=== PATIENT | female | born 1945 | race Caucasian/White ===

== ENCOUNTER 2024-01-16 09:27 | Outpatient (REF) | payer MEDICARE, OTHER, SELFPAY ==
--- NOTE | ~2024-01-16 | XR_ITS ---
EXAMINATION: XR KNEE, LEFT CLINICAL INFORMATION: Pain in left knee. COMPARISON: None available. TECHNIQUE: Three views of the left knee. FINDINGS: Moderate joint effusion. Status post total knee arthroplasty. Hardware appears intact. Alignment preserved. XR/XR knee LT 3V IMPRESSION: Moderate joint effusion. Status post total knee arthroplasty. Hardware appears intact. Alignment preserved.
== END 2024-01-16 09:28 | disposition home or self-care (01) ==
LOC: HO.HOSX 09:27
PROVIDERS: Visit Provider Orthopaedic Surgery
DX: M25.562 Pain in left knee (principal)
CPT/HCPCS: 73562

== ENCOUNTER 2024-01-16 10:34 | Outpatient (AMB) | payer MEDICARE, OTHER, SELFPAY ==
--- NOTE | 2024-01-16 10:43 | A.OFFVIS_ITS ---
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 Barnes for her Left TKA done in October of 2019. She reports minimal discomfort in her left knee. The patient states that over the last year she has fallen on several occasions. She has suffered a compression fracture of her low back as well as a pelvis fracture. She has done formal physical therapy. She is trying to get back into shape so she can perform ballet again. Allergies tetracycline Allergy (Intermediate, Verified 01/16/24 10:50) Rash keflex Allergy (Intermediate, Uncoded 01/16/24 10:50) Hives Medication List - Last Reconciled 01/16/24 by Dave Barnes MD atorvastatin 20 mg PO DAILY lorazepam 0.5 mg PO DAILY sertraline 50 mg PO DAILY trazodone 50 mg PO BEDTIME [facility] Surgical History (Updated 01/16/24 @ 10:53 by Karin Boykin CMA) History of foot surgery History of foot surgery History of surgery on right wrist Hx of left knee surgery (~10/2019) Social History (Updated 01/16/24 @ 10:53 by Karin Boykin CMA) Patient Tobacco Use Status: Never used Tobacco 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al status: retired 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: 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 Physical Exam Vital Signs: BMI result Body Mass Index 22.5 Const Other: Well-nourished well-developed very friendly female awake alert and oriented x3 in no acute distress Extrem Other: Bilateral lower extremity examination shows good capillary refill, no skin lesions noted, normal sensation light touch Left knee examination shows that the surgical incision is well healed, no erythema, full active extension and flexion to 120 degrees, her patella tracks well Results Reviewed Results Reviewed: X-rays of the patient's left knee taken today show a total knee arthroplasty in good position with no signs of loosening, no acute bony abnormalities Assessment & Plan Assessment & Plan (1) Left knee pain: Code(s): M25.562 - Pain in left knee Plan Ms. Carrington continues to do well after undergoing left total knee replacement surgery in October of 2019. She will continue with her physical therapy exercises. Activity modifications were discussed at length with the patient. She will contact me prior to her follow-up appointment in 3 months should any questions or concerns arise. Feel free to call me at any time should questions regarding her orthopedic management arise. I spent 22 minutes in reviewing the patient's records and imaging studies, seeing the patient and documenting in the medical record. Orders: Orders XR knee LT 3V Today M25.562 - Pain in left knee Coding Level of Care Code Est Pt Level 2 (10764) Diagnoses Left knee pain M25.562
[2024-01-16 10:48] VITALS: BMI 22.5
== END 2024-01-16 11:13 | disposition home or self-care (01) ==
PROVIDERS: PCP Internal Medicine; Visit Provider Orthopaedic Surgery
DX: M25.562 Pain in left knee (principal)
CPT/HCPCS: 99213

== ENCOUNTER 2024-04-22 10:58 | Outpatient (AMB) | payer MEDICARE, OTHER, SELFPAY ==
--- NOTE | 2024-04-22 11:01 | MHC.OFFVIS ---
Intake Visit Reasons: ov-LT TKA follow up-DOS 2019 Intake Note: Freda is a 79 year old female who presents to the office today for a LT TKA 2019 follow up. Pt states she is feeling well. She states her ROM is great. Pt denies any concerns at this time. She has returned to dancing for exercise. She does not take any medicine for discomfort. Allergies tetracycline Allergy (Intermediate, Verified 04/22/24 11:01) Rash keflex Allergy (Intermediate, Uncoded 04/22/24 11:01) Hives Medication List - Last Reconciled 04/22/24 by Dave Barnes MD atorvastatin 20 mg PO DAILY lorazepam 0.5 mg PO DAILY sertraline 50 mg PO DAILY trazodone 50 mg PO BEDTIME [facility] Surgical History (Updated 01/16/24 @ 10:53 by Karin Boykin CMA) History of foot surgery History of foot surgery History of surgery on right wrist Hx of left knee surgery (~10/2019) Social History (Updated 01/16/24 @ 10:53 by Karin Boykin CMA) Patient Tobacco Use Status: Never used Tobacco 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al status: retired 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 Carrington continues to do very well after undergoing left total knee replacement surgery. She will continue with her dance exercise program. She does know to take antibiotics before any dental work. She will contact me prior to her annual follow-up appointment should any questions or concerns arise. Feel free to call me at any time should questions regarding her orthopedic management arise. I spent 21 minutes in reviewing the patient's records and imaging studies, seeing the patient and documenting in the medical record. Coding Level of Care Code Est Pt Level 3 (27643) Diagnoses Left knee pain M25.562
== END 2024-04-22 11:22 | disposition home or self-care (01) ==
PROVIDERS: PCP Internal Medicine; Visit Provider Orthopaedic Surgery
DX: M25.562 Pain in left knee (principal); Z96.652 Presence of left artificial knee joint
CPT/HCPCS: 99212

== ENCOUNTER → 2024-04-22 10:58 | Outpatient (BNVA) | payer OTHER, MEDICARE, SELFPAY | PROVIDERS: PCP Internal Medicine; Visit Provider Orthopaedic Surgery ==

== ENCOUNTER 2025-04-22 07:53 | Outpatient (REF) | payer MEDICARE, OTHER, SELFPAY ==
--- NOTE | ~2025-04-22 | XR_ITS ---
EXAMINATION: XR KNEE 3 VIEWS LEFT HISTORY: M25.562 - Pain in left knee COMPARISON: There are no prior studies for comparison. FINDINGS: AP, lateral, and sunrise patellar views of the left knee are submitted. The patient is again noted to be status post left total knee arthroplasty. The orthopedic elements are in anatomic alignment. There is no radiographic evidence of loosening. There is no fracture or dislocation. There is no joint effusion. The soft tissues are unremarkable. XR/XR knee LT 3V IMPRESSION: Status post left total knee arthroplasty. Electronically signed by: Didier Craig MD 04/22/2025 11:28 AM EDT
--- OUTSIDE RECORDS SUMMARY | 2025-04-23 07:57 | XMS_ITS | Patient Health Record ---
[facility] Address [address] [place] [address] Care Team Providers Care Progressive Die Maker Name Role Phone Dick CONNOLLY, Gibson Primary Care Provider Yesica Brennen Oakes Unavailable [phone] Allergies Allergen (clinical drug ingredient) Drug/Non Drug [...] primary osteoarthritis of the ankle and/or foot ([id number]) Primary osteoarthrit is, left ankle and foot (M19.072) Active confirmed Plan Of Treatment Pending Test Test Name Order Date X ray : Foot, left 2V 06/12/2011 X ray : Foot, left 3V 06/30/2013 X ray : Foot, left 3V 07/30/2017 X ray : Foot, left 3V 11/19/2018 [id number] TENDON SHEATH/LIGAMENT 0 06/12/2011 11447, J0702- Neuroma/Injection 06/30/20 13 Insurance Providers Payer Name Payer Address Payer Phone Subscriber Number Group Number Insured Name Patient Relationship to Insured Coverage Start Date Coverage End Date Medicare National [employer] [address] [facility] [address] [id number] Freda Garcia Self - patient is the insured [facility] ([facility]) [address] [place] [address] [id number] Fabian Garcia Spouse - patient is the spouse of the insured Medical (General) History Medical History History ICD Code Arthritis rheumatic fever reflux osteoporosis mumps measles chicken pox broken bones Anxiety disorder Cholesterol Stomach ulcer Joint implants/screws Surgical History Surgery Date(Month/Year) bunionectomy 04/18/2010 hammer toe 04/18/2010 tonsillectomy age 6 tubal ligation 1984
--- OUTSIDE RECORDS SUMMARY | 2025-04-23 07:57 | XMS_ITS | Clinical Summary ---
Author Organization [facility] Address [address] [place] [address] Care Team Providers Care Livestock Farm Manager Name Role Phone Gibson Jennings MD Primary Care Provider +1- [phone] Allergies Active Allergy Reactions Criticality Noted Date [...] this topic Medical Devices Implanted Type Area Oil Spraying Machine Operator Device Identifier Shelf Expiration Date Model / Serial / Lot Cement Simplex P Radiopaque Full Dose Bone 10 Pack - [id number] - [id number] Implanted:Qty: 1 on 11/12/2019 by Dave Barnes MD at [facility] Left: Knee [facility] 09/12/2021 6191-1-010 / / [id number] Cement Simplex P Radiopaque Full Dose Bone 10 Pack - [id number] - [id number] Implanted:Qty: 1 on 11/12/2019 by Dave Barnes MD at [facility] Left: Knee [employer] 09/12/2021 6191-1-010 / / [id number] Baseplate Triathlon 4 Primary Cemented Tibial Knee - [id number] - [id number] Implanted:Qty: 1 on 11/12/2019 by Dave Barnes MD at [facility] Left: Knee [employer] 02/17/2024 5520-B-400 / / [id number] Component Triathlon 3 Posterior Stabilized Cemented Femoral - 259330 - [id number] Implanted:Qty: 1 on 11/12/2019 by Dave Barnes MD at [facility] Left: Knee [facility] 11/05/2023 5515-F-301 / / [id number] Insert Triathlon 4 9mm Posterior Stabilized X3 Tibial Knee - [id number] - [id number] Implanted:Qty: 1 on 11/12/2019 by Dave Barnes MD at [facility] Left: Knee [facility] 01/26/2023 5532-G-409 / / [id number] Component Triathlon 9mm 29mm Asymmetric X3 Ptlar Knee - [id number] - [id number] Implanted:Qty: 1 on 11/12/2019 by Dave Barnes MD at [facility] Left: Knee [facility] 03/28/2024 5551-G-299 / / [id number] Peg Triathlon Modular Fix Distal Femur Knee - 039013 - [id number] Implanted:Qty: 1 on 11/12/2019 by Dave Barnes MD at [facility] Left: Knee [employer] 12/30/2023 5575-X-000 / / [id number] Advance Directives For more information, please contact: [phone] Latest Code Status on File Code Status [...] way: discussion with patient . Care Teams Livestock Farm Manager Relationship Specialty Start Date End Date Gibson Jennings MD [address] [address] PCP - General Internal Medicine 02/06/18
--- OUTSIDE RECORDS SUMMARY | 2025-04-23 07:57 | XMS_ITS | Clinical Summary ---
Author Organization [facility] Address [address] [place] [address] Care Team Providers Care Data Warehousing Engineer Name Role Phone Gibson Jennings MD Primary Care Provider +1- [phone] Surgical History Surgery Date Site/Laterality Comments OTHER SURGICAL HISTORY PROCEDURE:ID PELVIC EXAMINATION W/ANESTHESIA OTHER THAN LOCAL;COMMENT:TUBAL LIGATION TONSILLECTOMY PROCEDURE:TONSILLECTOMY BUNIONECTOMY Bilateral PROCEDURE:BUNIONECTOMY OTHER SURGICAL HISTORY Bilateral PROCEDURE:HAMMERTOE KNEE SURGERY Left PROCEDURE:KNEE SURGERY;COMMENT:SCOPE COLONOSCOPY PROCEDURE:COLONOSCOPY TOTAL KNEE ARTHROPLASTY 11/12/2019 Left PROCEDURE:TOTAL KNEE ARTHROPLASTY;COMMENT:Procedure: REPLACEMENT TOTAL KNEE; Surgeon: Dave Barnes MD; Location: [facility] Service: Orthopedics; [...] this topic Medical Devices Implanted Type Area Service Technician Device Identifier Shelf Expiration Date Model / Serial / Lot Cement Simplex P Radiopaque Full Dose Bone 10 Pack - [id number] Implanted:Qty: 1 on 11/12/2019 by Dave Barnes MD Left: Knee [facility] [employer] 09/12/2021 6191-1-010 / / [id number] Cement Simplex P Radiopaque Full Dose Bone 10 Flzg - [id number] Implanted:Qty: 1 on 11/12/2019 by Dave Barnes MD Left: Knee [employer] [employer] 09/12/2021 6191-1-010 / / [id number] Baseplate Triathlon 4 Primary Cemented Tibial Knee - [id number] Implanted:Qty: 1 on 11/12/2019 by Dave Barnes MD Left: Knee [employer] [facility] 02/17/2024 5520-B-400 / / [id number] Component Triathlon 3 Posterior Stabilized Cemented Femoral - [id number] Implanted:Qty: 1 on 11/12/2019 by Dave Barnes MD Left: Knee [employer] [facility] 11/05/2023 5515-F-301 / / [id number] Insert Triathlon 4 9mm Posterior Stabilized X3 Tibial Knee - [id number] Implanted:Qty: 1 on 11/12/2019 by Dave Barnes MD Left: Knee [facility] 01/26/2023 5532-G-409 / / [id number] Component Triathlon 9mm 29mm Asymmetric X3 Ptlar Knee - [id number] Implanted:Qty: 1 on 11/12/2019 by Dave Barnes MD Left: Knee [facility] [facility] 03/28/2024 5551-G-299 / / [id number] Peg Triathlon Modular Fix Distal Femur Knee - [id number] Implanted:Qty: 1 on 11/12/2019 by Dave Barnes MD Left: Knee [employer] 12/30/2023 5575-X-000 / / [id number] Procedures Procedure Name Priority Date/Time Associated Diagnosis Comments [facility] DEXA AXIAL SKELETON Routine 05/18/2024 3:15 PM EDT Other specified disorders of bone density and structure, other site from Last 3 Months or Most Recently Relevant to Health Maintenance Results * [facility] DEXA AXIAL SKELETON (05/18/2024 3:15 PM EDT) Anatomical Region Laterality Modality Mammography 05/18/2024 2:27 PM EDT Narrative 05/18/2024 3:15 PM EDT [facility] Diagnostic Imaging Department [address] [place] [id number] Patient: FREDA STEPHENS Eddie Torres./Age/Sex: 1945 - 79 - F Unit#: [id number] Location/Status: SPDIMAM/REG CLI Mnemonic[facility] Ordering Physician: MAX WELCH MD Deep Dexa Axial Skeleton - 05/18/24 - 1499 Report Status:Signed History: Low estrogen state due to menopause. Personal history of fracture. Patient receives Prolia injection twice year. Comparison: No comparison imaging at this institution. Findings: Bone densitometry is performed utilizing dual energy x-ray absorptiometry (DXA) in the [employer] unit. The lumbar spine and proximal femora [...] 18.6 percent Hip 4.2 percent. IMPRESSION: Osteopenia. [id number] Dictating Physician: MARIANA SORTO MD Electronically Signed by: MARIANA SORTO MD Dic Date/Time: 05/18/241512 Sign date/Time: 05/18/241514 Procedure Note Mariana Sorto MD - 07/29/2024 [facility] Diagnostic Imaging Department [address] [place] [id number] Patient: FREDA STEPHENS Eddie Torres./Age/Sex: 1945 - 79 - F Unit#: [id number] Location/Status: [facility] CLI Mnemonic[facility] Ordering Physician: MAX WELCH MD Deep Dexa Axial Skeleton - 05/18/241499 Report Status:Signed History: Low estrogen state due to menopause. Personal history offracture. Patient receives Prolia injection twice year. Comparison: No comparison imaging at this institution. Findings: Bone densitometry is performed utilizing dual energy x-ray absorptiometry(DXA) in the [employer] unit. The lumbar spine and proximal femora [...] 18.6 percent Hip 4.2 percent. IMPRESSION: Osteopenia. [id number] Dictating Physician: MARIANA SORTO MD Electronically Signed by: MARIANA SORTO MD Dic Date/Time: 05/18/24 1513 Sign date/Time: 05/18/24 1515 us Max Welch MD IMG BI PROCEDURES Ruchi l Result from Last 3 Months or Most Recently Relevant to Health Maintenance Care Teams Data Warehousing Engineer Relationship Specialty Start Date End Date Gibson Jennings MD [address] [address] PCP - General Internal Medicine 02/06/18
== END 2025-04-22 07:54 | disposition home or self-care (01) ==
LOC: HO.HOSX 07:53
PROVIDERS: Visit Provider Orthopaedic Surgery
DX: M25.562 Pain in left knee (principal); Z96.652 Presence of left artificial knee joint
CPT/HCPCS: 73562

== ENCOUNTER 2025-04-22 11:13 | Outpatient (AMB) | payer OTHER, MEDICARE, SELFPAY ==
[2025-04-22 11:24] VITALS: BMI 22.5
--- NOTE | 2025-04-22 11:24 | MHC.OFFVIS ---
Vital Signs 04/22/25 11:24 Height 5 ft 5 in Weight 135 lb BMI 22.5 Intake Visit Reasons: OV-LT TKA follow up-DOS Oct, 2019 Intake Note: Freda is a 80 year old female who presents to the office today after undergoing a left total knee arthroplasty October,. The patient reports mild intermittent discomfort in her left knee. She continues with her ballet dancing 2 times per week for exercise. She does not take any medicines for discomfort. She denies any fevers or chills. Allergies tetracycline Allergy (Intermediate, Verified 04/22/25 11:24) Rash keflex Allergy (Intermediate, Uncoded 04/22/25 11:24) Hives Medication List - Last Reconciled 04/22/25 by Dave Barnes MD atorvastatin 20 mg PO DAILY lorazepam 0.5 mg PO DAILY sertraline 50 mg PO DAILY trazodone 50 mg PO BEDTIME [facility] Surgical History (Updated 01/16/24 @ 10:53 by Karin Boykin CMA) History of foot surgery History of foot surgery History of surgery on right wrist Hx of left knee surgery (~10/2019) Social History (Updated 01/16/24 @ 10:53 by Karin Boykin CMA) Patient Tobacco Use Status: Never used Tobacco 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al status: retired 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: 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 Physical Exam Vital Signs: BMI result Body Mass Index 22.5 Const Other: Well-nourished well-developed very friendly female awake alert and oriented x3 in no acute distress Extrem Other: Left knee examination shows surgical incision is well healed, no erythema, full active extension and flexion to 125 degrees, her patella tracks well Results Reviewed Results Reviewed: X-rays of the patient's left knee taken today show a total knee arthroplasty in good position with no signs of loosening, no acute bony abnormalities Assessment & Plan Assessment & Plan (1) Left knee pain: Code(s): M25.562 - Pain in left knee Category: Medical Plan Ms. Carrington continues to do well after undergoing left total knee replacement surgery. She will continue with her exercise program. She does know to take antibiotics before any dental work. She will contact me prior to her annual follow-up appointment should any questions or concerns arise. I spent 21 minutes in reviewing the patient's records and imaging studies, seeing the patient and documenting in the medical record. Orders: Orders XR knee LT 3V Today M25.562 - Pain in left knee Coding Level of Care Code Est Pt Level 3 (50730) Complex EM visit Add On G2211 Diagnoses Left knee pain M25.562
--- OUTSIDE RECORDS SUMMARY | 2025-04-22 11:58 | XMS_ITS | Patient Health Record ---
[facility] Address [address] [place] [address] Care Team Providers Care Academic Interventionist Name Role Phone Dick CONNOLLY, Gibson Primary Care Provider Yesica Brennen Oakes Unavailable [phone] Allergies Allergen (clinical drug ingredient) Drug/Non Drug Allergy documented on EMR Reaction Allergy Type Onset Date Status Information temporarily unavailable Cat (uncoded) Unknown Allergy Active Information temporarily unavailable ceclor hives, itching Drug Allergy Active Information temporarily unavailable Ceftin hives, itching Drug Allergy Active Information temporarily unavailable Keflex hives, itching Drug Allergy Active Information temporarily unavailable Tetracycline HCl pain Drug Allergy Active Reason For Referral No Information Medications Medication SIG (Take, Route, Frequency, Duration) Notes Start Date End Date Status Benadryl 50 MG/ML 0.2 ml as needed Injection every 6 hrs Active Voltaren 1 % as directed Transdermal apply bid to painful area; Duration: 30 days 11/19/2018 Active Ativan Active Zocor 80 MG 1 tablet every evening Orally Once a day; Duration: 30 day(s) Not-Taking Zoloft Active Vitamin D 2000 UNIT as directed Orally Active ASO Ankle/Foot Stablizing AFO As directed Wear Daily; Duration: as needed Active Reclast once a year Active Magnesium Orally Once a day; Duration: 30 day(s) Active Calcium 150 MG as directed Orally Active Simvastatin Active Multivitamins as directed Orally Active Social History Tobacco Use: Social History Observation Description Date Details (start date - stop date) Never Smoker NA - NA Tobacco Use/Smoking Question Answer Notes Are you a: nonsmoker Additional Findings: Tobacco Non-User Current no n-smoker Alcohol Screen Question Answer Notes Did you have a drink containing alcohol in the p ast year? Yes Points 0 Interpretation Negative Tobacco use other than smoking: Question Answer Notes Are you an other tobacco user? No Problems Problem Type SNOMED Code ICD Code Onset Dates Problem Status W/U Status Risk Notes Problem Localized, primary osteoarthritis of the ankle and/or foot ([id number]) Primary osteoarthrit is, left ankle and foot (M19.072) Active confirmed Plan Of Treatment Pending Test Test Name Order Date X ray : Foot, left 2V 06/12/2011 X ray : Foot, left 3V 06/30/2013 X ray : Foot, left 3V 07/30/2017 X ray : Foot, left 3V 11/19/2018 [id number] TENDON SHEATH/LIGAMENT 0 06/12/2011 80121, [id number]- Neuroma/Injection 06/30/20 13 Insurance Providers Payer Name Payer Address Payer Phone Subscriber Number Group Number Insured Name Patient Relationship to Insured Coverage Start Date Coverage End Date Medicare National [employer] [address] [place] [address] [id number] Freda Garcia Self - patient is the insured [facility] [address] [place] [address] [id number] Fabian Garcia Spouse - patient is the spouse of the insured Medical (General) History Medical History History ICD Code Arthritis rheumatic fever reflux osteoporosis mumps measles chicken pox broken bones Anxiety disorder Cholesterol Stomach ulcer Joint implants/screws Surgical History Surgery Date(Month/Year) bunionectomy 04/18/2010 hammer toe 04/18/2010 tonsillectomy age 6 tubal ligation 1984
--- OUTSIDE RECORDS SUMMARY | 2025-04-22 11:58 | XMS_ITS | Clinical Summary ---
Author Organization [facility] Address [address] [place] [address] Care Team Providers Care Carbonizer Tester Name Role Phone Gibson Jennings MD Primary Care Provider [phone] Allergies Active Allergy Reactions Criticality Noted Date Comments Cephalexin Hives Medium 02/21/2018 Tetracycline Rash Low 02/21/2018 Medications Medication Sig Dispensed Refills Start Date End Date Status simvastatin (ZOCOR) tablet 40 mg Take 40 mg by mouth daily. 1 11/21/2017 Active LORazepam (ATIVAN) 0.5 MG tablet Take 0.5 mg by mouth every 6 (six) hours as needed. 0 Active sertraline (ZOLOFT) 50 MG tablet Take 50 mg by mouth every evening. 0 10/19/2019 Active Cholecalciferol (VITAMIN D) 25 MCG (1000 UT) TABS Take 2 tablets by mouth daily. 0 Active Magnesium 500 MG TABS Take 1 tablet by mouth daily. 0 Active CALCIUM-VITAMIN D PO Take 1 tablet by mouth daily. 0 Active Multiple Vitamins-Minerals (MULTIVITAMIN ADULT PO) Take 1 tablet by mouth daily. 0 Active famotidine (PEPCID) 20 MG tablet Take 20 mg by mouth daily as needed for heartburn. 0 Active aspirin EC 81 MG EC tablet Take 1 tablet (81 mg total) by mouth 2 (two) times a day after meals. 84 tablet 0 11/13/2019 Active senna-docusate (PERICOLACE) 8.6-50 MG Take 1 tablet by mouth 2 (two) times a day. 28 tablet 0 11/13/2019 Active clindamycin (CLEOCIN) 300 MG capsule Take 2 capsules 1 hour prior to dental appointment 10 capsule 3 11/26/2019 Active HYDROcodone-acetam inophen (NORCO) 5-325 MG per tablet 1-2 tabs p.o. every 6 hours as needed for pain. May fill for lesser quantity. 40 tablet 0 12/22/2019 Active sertraline (ZOLOFT) 25 MG tablet Take 25 mg by mouth daily. 0 12/21/2019 Active Non-Aspirin Pain Reliever 325 MG tablet 0 08/01/2021 Active oxyCODONE (OXY-IR) 5 MG capsule 0 08/01/2021 Active ibuprofen 400 MG tablet 0 08/01/2021 Active diphenhydrAMINE HCl (BENADRYL ALLERGY PO) Take by mouth. 0 Active meloxicam (MOBIC) 15 MG tabletIndications: DDD (degenerative disc disease), lumbar Take 1 tablet (15 mg total) by mouth daily. 30 tablet 0 10/02/2021 Active Forteo 620 MCG/2.48ML SOPN 0 01/15/2022 Active Active Problems Problem Noted Date Diagnosed Date Arthritis of left knee 11/12/2019 Restless leg syndrome 10/30/2019 Family History Medical History Relation Name Comments Arthritis Brother Hyperlipidemia Brother Cancer Mother STOMACH Relation Name Status Comments Brother Alive Father (Age 38) SUICIDAL D ROWNING Mother (Age 72) Social History Tobacco Use Types Packs/Day Years Used Date Smoking Tobacco: Never Smokeless Tobacco: Never Alcohol Use Standard Drinks/Week Comments Yes 3 (1 standard drink = 0.6 oz pur e alcohol) Sex and Gender Information Value Date Recorded Sex Assigned at Female 10/22/2019 9:39 AM EST Gender Identity Female 10/22/2019 9:39 AM EST Sexual Orientation Not on file Job Start Date Occupation Industry Not on file Not on file Not on file Last Filed Vital Signs Vital Sign Reading Time Taken Comments Blood Pressure 92/52 11/13/2019 9:17 AM EST Pulse 69 11/13/2019 8:03 AM EST Temperature 36.8 C (98.2 F) 11/13/2019 8:03 AM EST Respiratory Rate 16 11/13/2019 8:03 AM EST Oxygen Saturation 98% 11/13/2019 8:03 AM EST Inhaled Oxygen Concentration - - Weight 64.9 kg (143 lb) 10/02/2021 11:39 AM EST Height 167.6 cm (5' 6 ) 10/02/2021 11:39 AM EST Body Mass Index 23.08 10/02/2021 11:39 AM EST Plan of Treatment Health Maintenance Due Date Last Done Comments Hepatitis C Screening 1945 COVID-19 Vaccine (#1) 1946 Depression Screening 1958 Preventative Health Evaluation 1964 Shingrix-Zoster Vaccine (1 o f 2) 1996 Fall Risk Assessment 2011 Osteoporosis Screening (DEXA Scan) 2011 Pneumococcal Vaccine (1 of 1 - PCV) 2011 RSV Adult > 60+ Yrs or (1 - 1-dose 75+ series) 2021 Influenza Vaccine (#1) 2025 DTap / Tdap / Td (2 - Td or Tdap) 07/31/2031 07/31/2021, 10/14/2011 Hepatitis B Vaccines Aged Out No long er eligible based on patient's age to complete this topic RSV Ped < 20 months Aged Out No longe r eligible based on patient's age to complete this topic Medical Devices Implanted Type Area Production Operations Inspector Device Identifier Shelf Expiration Date Model / Serial / Lot Cement Simplex P Radiopaque Full Dose Bone 10 Pack - [id number] - [id number] Implanted:Qty: 1 on 11/12/2019 by [place] [facility] [place]: Knee [employer] 09/12/2021 6191-1-010 / / [id number] Cement Simplex P Radiopaque Full Dose Bone 10 Pack - [id number] - [id number] Implanted:Qty: 1 on 11/12/2019 by [place] [facility] [place]: Knee [employer] 09/12/2021 [id number] / / [id number] Baseplate Triathlon 4 Primary Cemented Tibial Knee - [id number] - [id number] Implanted:Qty: 1 on 11/12/2019 by [place] [facility] [place]: Knee [employer] 02/17/2024 [id number] / / [id number] Component Triathlon 3 Posterior Stabilized Cemented Femoral - [id number] - [id number] Implanted:Qty: 1 on 11/12/2019 by [place] [facility] Left: Knee [employer] 11/05/2023 [id number] / / [id number] Insert Triathlon 4 9mm Posterior Stabilized X3 Tibial Knee - [id number] - [id number] Implanted:Qty: 1 on 11/12/2019 by [place] [facility] Left: Knee [employer] [facility] 01/26/2023 [id number] / / [id number] Component Triathlon 9mm 29mm Asymmetric X3 Ptlar Knee - [id number] - [id number] Implanted:Qty: 1 on 11/12/2019 by [place] [facility] Left: Knee [employer] [facility] 03/28/2024 [id number] / / [id number] Peg Triathlon Modular Fix Distal Femur Knee - [id number] - [id number] Implanted:Qty: 1 on 11/12/2019 by Dave [place] [facility] Left: Knee [employer] 12/30/2023 [id number] / / [id number] Advance Directives For more information, please contact: [phone] Latest Code Status on File Code Status Date Activated Date Inactivated Comments Full Code 11/12/2019 12:14 PM 11/13/2019 5:28 PM This code status was ascertained in the following way: discussion with patient . Code Status History Code Status Date Activated Date Inactivated Comments Full Code 11/12/2019 8:45 AM 11/12/2019 12:13 PM This code status was ascertained in the following way: discussion with patient . Care Teams Carbonizer Tester Relationship Specialty Start Date End Date Gibson Jennings MD [address] [address] PCP - General Internal Medicine 02/06/18
--- OUTSIDE RECORDS SUMMARY | 2025-04-22 11:58 | XMS_ITS ---
Author Name [facility] Organization Unknown History of Medication Use Medication Directions Dispensed Refills Start Date End Date Stat us lorazepam 1 mg tablet 0.5 mg as needed by oral route. 05/13/2023 10/26/2024 active gabapentin 100 mg capsule TAKE 1 CAPSULE BY MOUTH THREE TIMES A DAY FOR 14 DAYS 10/26/2024 active teriparatide 20 mcg/dose (600 mcg/2.4 mL) subcutaneous pen injector 10/26/2024 active hydrocodone 5 mg-acetaminophen 325 mg tablet TAKE 1 TABLET BY MOUTH EVERY 4 TO 6 HOURS NEEDED FOR PAIN 03/21/2023 active atorvastatin 20 mg tablet TAKE 1 TABLET BY MOUTH EVERY DAY active Allergies Allergen Reaction Severity Comment Documented Date Source Statu s KEFLEX ENS_AONECT TETRACYCLINE ENS_AONECT Problems Problem Status Onset Date Problem Type Date of Resoluti on Source Toe joint unstable active 2024-09-06 ProblemAct ENS_[facility]ONECT Fracture of superior pubic ramus active 2023-06-03 ProblemAct E[facility] Closed fracture of second metatarsal bone active 2024-08-04 ProblemAct ENS_A ONECT Pain of left hip joint active 2023-06-03 ProblemAct ENS_AONECT Encounters Encounter Type Encounter Reason Primary Diagnosis Location Date Ambulatory [facility] [place] 11/06/2024 Ambulatory [facility] 11/05/2024 Ambulatory [facility] 11/05/2024 Ambulatory [facility] 10/13/2024 Ambulatory [facility] [place] 09/05/2024 Ambulatory [facility] [place] 08/23/2024 Ambulatory [facility] [place] 08/05/2024 Ambulatory [facility] [place] 08/04/2024 Ambulatory [facility] [place] 08[facility]18/2023 Ambulatory [facility] [place] 06/05/2023 Ambulatory [facility] [place] 05/09/2023 Ambulatory [facility] [place] 03/25/2023 Ambulatory [facility] [place] 03/25/2023 Ambulatory [facility] [place] 03/25/2023 Ambulatory [facility] [place] 03/21/2023 Ambulatory [facility] [place] 03/21/2023 Ambulatory [facility] [place] 03/19/2023 Ambulatory [facility] [place] 03/17/2023 Ambulatory [facility] [place] 03/13/2023 Ambulatory [facility] [place] 03/13/2023
--- OUTSIDE RECORDS SUMMARY | 2025-04-22 11:58 | XMS_ITS | Clinical Summary ---
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 Name Role Phone Gibson Jennings MD Primary Care Provider [phone] Surgical History Surgery Date Site/Laterality Comments OTHER SURGICAL HISTORY PROCEDURE:WI PELVIC EXAMINATION W/ANESTHESIA OTHER THAN LOCAL;COMMENT:TUBAL LIGATION TONSILLECTOMY PROCEDURE:TONSILLECTOMY BUNIONECTOMY Bilateral PROCEDURE:BUNIONECTOMY OTHER SURGICAL HISTORY Bilateral PROCEDURE:HAMMERTOE KNEE SURGERY Left PROCEDURE:KNEE SURGERY;COMMENT:SCOPE COLONOSCOPY PROCEDURE:COLONOSCOPY TOTAL KNEE ARTHROPLASTY 11/12/2019 Left PROCEDURE:TOTAL KNEE ARTHROPLASTY;COMMENT:Procedure: REPLACEMENT TOTAL KNEE; Surgeon: Dave Barnes MD; Location: [facility] Service: Orthopedics; Laterality: Left; JOINT REPLACEMENT PROCEDURE:JOINT REPLACEMENT Medical History Medical History Date Comments Osteoporosis DX:Osteoporosis GERD (gastroesophageal reflux disease) DX:GERD (gastroesophageal reflux disease) Osteoarthritis DX:Osteoarthriti s Thyroid cyst DX:Thyroid cyst RLS (restless legs syndrome) DX: RLS (restless legs syndrome) Rheumatic fever DX:Rheumatic fev er;COMMENT:X 2 A CHILD URI (upper respiratory infection) 10/07/2019 DX:URI (upper respiratory infection) Hyperlipidemia DX:Hyperlipidemi a Dizziness DX:Dizziness Chronic constipation DX:Chronic constipation Anemia DX:Anemia Anxiety DX:Anxiety Depression DX:Depression Family History Medical History Relation Name Comments Arthritis Brother Hyperlipidemia Brother Cancer Mother STOMACH Relation Name Status Comments Brother Alive Father (Age 38) SUICIDAL D ROWNING Mother (Age 72) Social History Tobacco Use Types Packs/Day Years Used Date Smoking Tobacco: Never Smokeless Tobacco: Never Alcohol Use Standard Drinks/Week Comments Yes 3 (1 standard drink = 0.6 oz pur e alcohol) Comments Unknown Sex and Gender Information Value Date Recorded Sex Assigned at Not on file Legal Sex Female 8:35 AM EST Gender Identity Not on file Sexual Orientation Not on file Obstetrics History Plan of Treatment Health Maintenance Due Date Last Done Comments DTaP,Tdap,and Td Vaccines (1 - Tdap) 1965 Pneumococcal Vaccine: 50+ Ye ars (1 of 1 - PCV) 1996 Zoster Vaccines (1 of 2) 1996 RSV Immunization Adult Patie nts (1 - 1-dose 75+ series) 2021 Depression Screening 09/20/2022 Falls Risk Assessment 09/20/2022 Hepatitis C Screening 09/20/2022 Social Influencers of Health Screening 09/20/2022 COVID-19 Vaccine (1 - 2023-2 5 season) 2024 Influenza Vaccine (#1) 2025 Osteoporosis Screening (Bone Density Screening) 05/18/2034 05/18/2024 HIB Vaccines Aged Out No longer eligi ble based on patient's age to complete this topic HPV Vaccines Aged Out No longer eligi ble based on patient's age to complete this topic Hepatitis A Vaccines Aged Out No long er eligible based on patient's age to complete this topic Hepatitis B Vaccines Aged Out No long er eligible based on patient's age to complete this topic IPV Vaccines Aged Out No longer eligi ble based on patient's age to complete this topic MMR Vaccines Aged Out No longer eligi ble based on patient's age to complete this topic Meningococcal ACWY Vaccine Aged Out N o longer eligible based on patient's age to complete this topic Meningococcal B Vaccine Aged Out No l onger eligible based on patient's age to complete this topic RSV Immunization Patients Un kye 20 months Aged Out No longer eligible b ased on patient's age to complete this topic Varicella Vaccines Aged Out No longer eligible based on patient's age to complete this topic Medical Devices Implanted Type Area Helmet Coverer Device Identifier Shelf Expiration Date Model / Serial / Lot Cement Simplex P Radiopaque Full Dose Bone 10 Pack - [id number] Implanted:Qty: 1 on 11/12/2019 by Dave Barnes MD Left: Knee [employer] 09/12/2021 6191-1-010 / / [id number] Cement Simplex P Radiopaque Full Dose Bone 10 Tmek - [id number] Implanted:Qty: 1 on 11/12/2019 by Dave Barnes MD Left: Knee [employer] 09/12/2021 6191-1-010 / / [id number] Baseplate Triathlon 4 Primary Cemented Tibial Knee - [id number] Implanted:Qty: 1 on 11/12/2019 by Dave Barnes MD Left: Knee [employer] 02/17/2024 5520-B-400 / / [id number] Component Triathlon 3 Posterior Stabilized Cemented Femoral - [id number] Implanted:Qty: 1 on 11/12/2019 by Dave Barnes MD Left: Knee [employer] 11/05/2023 5515-F-301 / / [id number] Insert Triathlon 4 9mm Posterior Stabilized X3 Tibial Knee - [id number] Implanted:Qty: 1 on 11/12/2019 by Dave Barnes MD Left: Knee [employer] 01/26/2023 5532-G-409 / / [id number] Component Triathlon 9mm 29mm Asymmetric X3 Ptlar Knee - [id number] Implanted:Qty: 1 on 11/12/2019 by Dave Barnes MD Left: Knee [employer] 03/28/2024 5551-G-299 / / [id number] Peg Triathlon Modular Fix Distal Femur Knee - [id number] Implanted:Qty: 1 on 11/12/2019 by Dave Barnes MD Left: Knee [employer] 12/30/2023 5575-X-000 / / [id number] Procedures Procedure Name Priority Date/Time Associated Diagnosis Comments [facility] DEXA AXIAL SKELETON Routine 05/18/2024 3:15 PM EDT Other specified disorders of bone density and structure, other site from Last 3 Months or Most Recently Relevant to Health Maintenance Results * [facility] DEXA AXIAL SKELETON (05/18/2024 3:15 PM EDT) Anatomical Region Laterality Modality Mammography 05/18/2024 2:27 PM EDT Narrative 05/18/2024 3:15 PM EDT [facility] Diagnostic Imaging Department [address] [place] [id number] Patient: FREDA STEPHENS Eddie Torres./Age/Sex: 1945 - 79 - F Unit#: [id number] Location/Status: SPDIMAM/REG CLI Mnemonic[facility] Ordering Physician: MAX WELCH MD Deep Dexa Axial Skeleton - 05/18/24 - 1499 Report Status:Signed History: Low estrogen state due to menopause. Personal history of fracture. Patient receives Prolia injection twice year. Comparison: No comparison imaging at this institution. Findings: Bone densitometry is performed utilizing dual energy x-ray absorptiometry (DXA) in the [employer] unit. The lumbar spine and proximal femora are evaluated in the AP projection. The FRAX questionaire was completed. The results indicate low bone mass (osteopenia), with a right total femur T- score of -2.0. The Z score is 0.0, indicating bone mineral density within the range of normal for age. The detailed DEXA report will be mailed to the referring physician's office. DualFemur FRAX: 10-year Probability of Fracture: Major Osteoporotic 18.6 percent Hip 4.2 percent. IMPRESSION: Osteopenia. [id number] Dictating Physician: MARIANA SORTO MD Electronically Signed by: MARIANA SORTO MD Dic Date/Time: 05/18/241512 Sign date/Time: 05/18/241514 Procedure Note Mariana Sorto MD - 07/29/2024 [facility] Diagnostic Imaging Department [address] [place] [id number] Patient: FREDA STEPHENS Eddie Torres./Age/Sex: 1945 - 79 - F Unit#: [id number] Location/Status: [facility] CLI Mnemonic[facility] Ordering Physician: MAX WELCH MD Deep Dexa Axial Skeleton - 05/18/241499 Report Status:Signed History: Low estrogen state due to menopause. Personal history offracture. Patient receives Prolia injection twice year. Comparison: No comparison imaging at this institution. Findings: Bone densitometry is performed utilizing dual energy x-ray absorptiometry(DXA) in the [employer] unit. The lumbar spine and proximal femora areevaluated in the AP projection. The FRAX questionaire was completed. The results indicate low bone mass (osteopenia), with a right total femurT- score of -2.0. The Z score is 0.0, indicating bone mineral density withinthe range of normal for age. The detailed DEXA report will be mailed to the referring physician's office. DualFemur FRAX: 10-year Probability of Fracture: Major Osteoporotic 18.6 percent Hip 4.2 percent. IMPRESSION: Osteopenia. [id number] Dictating Physician: MARIANA SORTO MD Electronically Signed by: MARIANA SORTO MD Dic Date/Time: 05/18/24 1513 Sign date/Time: 05/18/24 1515 us Max Welch MD IMG BI PROCEDURES Ruchi l Result from Last 3 Months or Most Recently Relevant to Health Maintenance Care Teams Cd Manufacturing Supervisor Relationship Specialty Start Date End Date Gibson Jennings MD [address] [id number] PCP - General Internal Medicine 02/06/18
--- OUTSIDE RECORDS SUMMARY | 2025-04-22 11:58 | XMS_ITS | Data Portability ---
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 She has shown clinical and radiographic evidence of healing. She is restored back to high level of comfort and function. We have had some honest conversation about her continued participation in ballet. I would like her to be able to participate to some degree though I do recognize it presents a fall risk. I have challenged her to give some thought to how she can scale back her ballet practice to still have health benefits but at the same time minimize her fall risk. At her request, she is given an order for physical therapy. [email or web address] Not available 07/09/2023 14:37:46 08/04/2024 08/04/2024 Freda had a hyperextension in her right second toe with an avulsion fracture at the base of the proximal phalanx . Injury occurred a month ago and she has had ongoing pain. Unfortunately she has been working on her gait with physical therapy which has been encouraging her to flex her forefoot. Realistic expectations were emphasized. With her ongoing symptoms, she was encouraged to avoid this while she still has pain. She has been seen by our foot and ankle team in the past and will follow-up in 1 month. All questions answered to her satisfaction. Patient was seen and evaluated by Fabian Shepard PA-C in indirect conjunction with Dr. Lopez. The provider agrees with the history, physical examination, recommended tests/diagnostic imaging, and treatment plan. [email or web address] Not available 08/04/2024 17:39:27 09/03/2024 09/03/2024 We reviewed her x-rays and her small fracture fragment which certainly may correspond to some degree of injury to her plantar plate as she continues to have ongoing pain in her MTP joint and pain with Sheri testing. We discussed that she may continue to reduce pain activities, particularly with her foot flat to avoid any activities that replicate MTP extension such as being up on her toes. However, we further discussed that if she has ongoing pain and an inability to progress, she may ultimately require a second metatarsal modified Mark osteotomy and a plantar plate repair. We further discussed that it is certainly possible that if she underwent surgery, she would have ongoing swelling and stiffness postoperatively I would be unable to her. To ballet at the previous level she was able to. She will follow-up in a couple months to see if she has made progress and how she is doing. We can consider an MRI if needed. Not available 09/06/2024 17:19:43 10/26/2024 10/26/2024 Freda has left-sided rib pain with advanced scoliosis. She does remain active for her age of 79. Unfortunately, she still does some jumping and frequent twisting activities. Realistic expectations and activity modification were recommended. She has history of osteoporosis and multiple atraumatic rib fractures with the last being a year ago on the right. She is having left-sided symptoms. The role of repeat films and the limitations were discussed. We reviewed the images together on the computer. There is no obvious compression fracture although with scoliosis this can be difficult to fully see. Her symptoms have improved since she stopped doing as many jumping activities and with activity modification. Symptoms and not appear to be radicular in nature. Her primary concern was sequelae if symptoms worsen. Fractures. We discussed that treatment would not likely change since her not constant and limiting her. I would expect symptoms to continue to improve with time. She should likely follow-up with her primary care provider if symptoms do not improve or worsen. All questions answered to her satisfaction. Patient was seen and evaluated by Fabian Shepard PA-C in indirect conjunction with Dr. Mercado. The provider agrees with the history, physical examination, recommended tests/diagnostic imaging, and treatment plan. [email or web address] Not available 10/26/2024 16:09:47 11/05/2024 11/05/2024 She is doing muc h better with some additional rest. She has been able to get back to all activities. She may follow-up with me as needed. Not available 11/05/2024 13:02:49 Plan of Treatment Reminders Order Date Submit Date Provider Last Modified By Organization Details Last Modified Time Details Appointments None record ed. Lab None record ed. Referral None record ed. Procedures None record ed. Surgeries None record ed. Imaging XR, ribs, unilat eral, 2 view 025 10/26/19 25 [email or web address] 1 [facility], [address], [place], [address], 5 16:15:46 XR, foot, 3 or more view 024 08/04/20 24 [email or web address] 1 [facility], [address], [place], [address], 4 15:56:50 XR, pelvis , 1 or 2 view 023 07/09/20 23 [email or web address] [facility], [address], [place], [address], 3 16:13:44 Medication Orders None record ed. Patient TargetsNo targets recorded. Patient Instructions Encounter Date Encounter Id Patient Instructions Last Modified By Organization Details Last Modified Time 07/09/2023 [id number] physical therapy * - Diagnosis: s/p L pubic rami fracture Evaluate and treat as indicated to reduce pain and to improve balance, mobility, range of motion, and function. Please teach a home exercise plan and incorporate PT into patient's exercise routine. 2-3 sessions weekly for 6 weeks. [email or web address] Not available 07/09/2023 14:39:31 Reason for Referral None Reported. Problems Name Problem SNOMED Code Status Onset Date Resolution Date Notes Provider Name and Address Organization Details Recorded Time Fracture of superior pubic ramus 821908180 Active 2022 FABIAN SHEPARD PA-C [address], [place], [address], [place] [facility] 3 12:38:34 Pain of left hip joint 7702746108051 00 Active 2022 FABIAN SHEPARD PA-C [address], [place], [address], [place] [facility] 3 12:39:51 Closed fracture of second metatarsal bone 27157898 Active 2023 FABIAN SHEPARD PA-C [address], [place], [address], [place] [facility] 4 17:38:20 Toe joint unstable 022985277 Active 2023 Ann Lopez MD [address], [place], [address], [place] [facility] 4 17:18:29 Problem Notes None recorded. Procedures Surgical History Date Name Laterality Status Provider Name and Address Organization Details Recorded Time Ankle/Foot Surgery completed Francesca Terry [place] [facility] 10/26/2024 11:40:54 Total knee arthroplasty completed Lynette Londono [place] [facility] 01/22/2023 11:26:49 Tonsillectomy/Shanita noidectomy completed Lynette [place]o [place] [facility] 01/22/2023 11:27:26 Imaging Results None recorded. Procedure Notes None recorded. Medical Equipment None Reported. Allergies Allergen ID Allergen Name Allergen Category Reaction Reaction Severity Criticality Documentation Date Start Date Code Code System Note Provider Name and Address Organization Details Recorded Time 1998 tetracycl ine medicatio n Not available Not available Not available 01/22/2023 41249 RxNorm Lynette [place] null, [place] [facility] 3 11:25:51 1999 Keflex medicatio n Not available Not available Not available 01/22/202339378 7 RxNorm Lynette [place] null, [place] [facility] 3 11:25:57 Medications Name Sig Start Date Stop Date Status Note LastModified by Organization Details LastModified Time atorvastati n 20 mg tablet TAKE 1 TABLET BY MOUTH EVERY DAY active Not Available Not Available No t Available clindamycin HCl 300 mg capsule TAKE 2 CAPSULES BY MOUTH 1 HOUR BEFORE APPT active Not Available Not Available No t Available trazodone 50 mg tablet TAKE 1 TABLET BY MOUTH EVERYDAY AT BEDTIME active Not Available Not Available No t Available azithromyci n 250 mg tablet TAKE 2 TABLETS BY MOUTH TODAY, THEN TAKE 1 TABLET DAILY FOR 4 DAYS 03/21 completed Not Available Not Available Not Available hydrocodone 5 mg-acetamin ophen 325 mg tablet TAKE 1 TABLET BY MOUTH EVERY 4 TO 6 HOURS NEEDED FOR PAIN 03/21 completed Not Available Not Available Not Available lorazepam 0.5 mg tablet TAKE 1 TABLET BY MOUTH NEEDED, FOR SLEEP/RES TLESS LEG/ANXIE TY FOR 90 DAYS active Not Available Not Available No t Available gabapentin 100 mg capsule TAKE 1 CAPSULE BY MOUTH THREE TIMES A DAY FOR 14 DAYS 10/26 completed Not Available Not Available Not Available lorazepam 1 mg tablet Take 0.5 mg as needed by oral route. 10/26 completed Not Available Not Available Not Available ibuprofen 600 mg tablet TAKE 1 TABLET BY MOUTH THREE TIMES A DAY FOR 14 DAYS 10/26 completed Not Available Not Available Not Available sertraline 50 mg tablet TAKE 1 TABLET BY MOUTH EVERY DAY NEEDED FOR ANXIETY active Not Available Not Available No t Available oxycodone 5 mg tablet TAKE 1 TABLET BY MOUTH EVERY 6 HOURS 10/26 completed Not Available Not Available Not Available moxifloxaci n 0.5 % eye drops INSTILL 1 DROP INTO AFFECTED EYES 3 TIMES PER DAY X 5-7 DAYS 10/26 completed Not Available Not Available Not Available magnesium active Not Available Not Marilin ilable Not Available calcium active Not Available Not Avail able Not Available ibuprofen active Not Available Not Marilin ilable Not Available Benadryl active Not Available Not Avai lable Not Available Vitamin D active Not Available Not Marilin ilable Not Available teriparatid e 20 mcg/dose (560 mcg/2.24 mL) subcutaneou s pen injector 10/26 completed Not Available Not Available Not Available Flowflex COVID-19 Antigen Home Test kit USE DIRECTED active Not Available Not Available No t Available Clenpiq 10 mg-3.5 gram-12 gram/175 mL oral solution TAKE 175 ML BY MOUTH DIRECTED FOLLOW INSTRUCTI ONS PROVIDED BY OFFICE active Not Available Not Available No t Available Vitals Date Recorded Body height Body mass index (BMI) Body weight Provider Name and Address Organization Details Last Updated DateTime 10/26/2024 167.64 cm 22 kg/m2 89212.56 g Francesca Adamesnoel [place] [facility] 10/26/2024 11:39:58 Date Recorded Body height Body mass index (BMI) Body weight Provider Name and Address Organization Details Last Updated DateTime 07/09/2023 167.64 cm 22.8 kg/m2 94641.52 g Jaylonpaulapurva Zhaones [place] [facility] 07/09/2023 14:07:17 Date Recorded Body height Body mass index (BMI) Body weight Provider Name and Address Organization Details Last Updated DateTime 09/03/2024 167.64 cm 22.8 kg/m2 62048.52 g Tutu Wheat [place] [facility] 09/03/2024 11:50:06 Social History None recorded. Functional Status Question Answer Note LastModified by Organizat ion Details LastModified Time How many times per week do you consume alcohol? 1-2 times per week Information not available 03/13/2023 Do you use any illicit or recreational drugs? No Information not available 03/13/2023 Do you or have you ever used any other forms of tobacco or nicotine? No [email or web address] Information not available 03/13/2023 What is your level of alcohol consumption? Occasional [email or web address] Information not available 03/13/2023 Mental Status None recorded. Family History Relationship Description Onset Age of this Age Resolved Age Notes LastModified by Organization Details LastModified Time Father No current problems or disability [email or web address] Not available 01/22 11:26:34 Mother No current problems or disability [email or web address] Not available 01/22 11:26:34 Mother Malignant neoplastic disease [email or web address] Not available 10/14 11:40:41 Medical History Condition Response Gastrointestinal Disease Y Reflux/GERD Y Rheumatoid Arthritis Y Osteoporosis Y Gynecological HistoryNo gynecological history recorded. Obstetrics History GPAL:G 0 P 0 0 0 0 Past Encounters Encounter ID Performer Location Encounter Start Date Encounter Closed Date Diagnosis/Indication Diagnosis SNOMED-CT Code Diagnosis ICD10 Code Diagnosis Note [id number] [facility] [address] [facility] [address] [place] [address] 01/22/2023 11:22:22 01/22/2023 11:56:21 History of left total knee replacement 3650919993 472666 Z96.652 [id number] [facility] [address] [address] 9 03/13/2023 12:48:01 03/13/2023 13:41:04 Pain in left foot 3876265344 66302 M79.672 [id number] Ann Lopez MD [place] [address] 04/04/2023 14:15:11 04/04/2023 14:58:23 Pain in left foot 1385451271 19722 M79.672 [id number] FABIAN SHEPARD PA-C [facility] [address] [address] 9 06/03/2023 11:28:31 06/03/2023 12:48:31 Pain of left hip joint 0188102875 66423 M25.552 Fracture o f superior pubic ramus 278549367 S32.512D [id number] [place] [address] 06/11/2023 16:11:17 06/11/2023 16:33:57 Fracture of superior pubic ramus 865569370 S32.511D [id number] [place] [address] 07/09/2023 14:01:11 07/09/2023 14:38:43 Fracture of superior pubic ramus 565364430 S32.511D Pain of le ft hip joint 4382811215 63563 M25.552 [id number] FABIAN SHEPARD PA-C [facility] [address] [place] [address],[facility] [address] [place] [address] 08/04/2024 11:25:08 08/04/2024 12:07:21 Pain in right foot 9046254473 47997 M79.671 Closed fra cture of second metatarsal bone 41327922 S92.324A [id number] Ann Lopez MD [address] [place] [id number] 09/03/2024 11:49:01 09/03/2024 12:13:29 Toe joint unstable 271770481 M25.374 [id number] FABIAN SHEPARD PA-C [facility] [address] [place] [address],[facility] [address] [place] [address] 10/26/2024 11:07:25 10/26/2024 12:15:14 Rib pain 889054335 R07.81 [id number] Ann Lopez MD [address] [place] [id number] 11/05/2024 11:44:09 11/05/2024 12:19:12 Toe joint unstable 783088276 M25.374 Health Concerns Section Related Observation LastModified by Organization Detai ls LastModified Time None Recorded Concern Status LastModified by Organization Details LastModified Time None Recorded Advance Directives Directive None Recorded Payers Insurance Date Sequence Insurance Name Policy Number Policy Ying Covered Member ID Ying Member ID Guarantor Name 01/19/2023 1 MEDICARE [place]: [employer] Freda Carrington [id number] 1 Freda Carrington 01/19/2023 2 [facility] [id number] Freda Carrington [id number] Freda Carrington Notes Date Note Type Note Provider Name and Address Organization Details Recorded Time 07/09/2023 text/html 78-year-old lyndsey thompson is nearly 2 months status post fall and fracture to left-sided superior pubic rami. She reports that she is pain-free at present moment and has been for some time now. She has not encountered any new falls nor she had any problems since her last visit to the office. ANÍBAL TOMAS PA-C [address], [place], [address], [place] [facility] 07/09/2023 14:38:04 08/04/2024 text/html Patient is a pleasant 79-year-old female who presents today with right foot pain. She has a history of hammertoes treated by Dr. Youngblood 20 years ago. 1 month ago she bent her toes backwards during a Bio[employer] maneuver. She had pain in her foot but was hoping symptoms improved. She would have some improvement but easily aggravated her symptoms. She has neuropathy in her feet and was told she needed therapy. She has been working with a therapist on foot mobility, specifically flexing her toes. She would have some improvement and then recurrent symptoms. Normal walking activities did not cause significant pain. With her ongoing complaints she presents today for orthopedic consultation. She was previously seen by our foot and ankle team for stress fracture in her left foot in March 2023. FABIAN SHEPARD PA-C [address], [place], [address], [place] [facility] 08/04/2024 17:39:38 09/03/2024 text/html Freda is a pleasant 77-year-old female who presents today for follow-up evaluation regarding her left foot. She was most recently seen in urgent care approximately 1 month ago for a second toe injury that occurred from a hyperflexion injury at her MTP joint, again doing that lately. Of note, she also had a fall and pubic rami fractures that occurred last year. She is currently doing ballet only with her feet flat. She reports that her pain in her toe is burning and an 8 out of 10. It is severe and intermittent. She has taken some oxycodone that she had remaining for her toe pain. She reports that she has been referred to a neurologist for her mild neuropathy and frequent falls. From 04/04/23 ([facility]): for follow-up evaluation regarding her left foot. She is concerned as she has a history of previous stress fractures and whether or not she has a recurrence. She is currently back in regular shoes and was able to get out of her boot. She does report ongoing pain on uneven ground. She continues to do ballet multiple times a week. From 03/13 (MYA): today with left foot pain. She was in the garden on 03/09/2023 and stepped on a root and twisted her left foot. Pain is primarily on the lateral aspect of her foot. She rested and iced her foot but has ongoing symptoms. Symptoms are typically worse with any standing and walking. She had a similar injury in 2018 with a stress fracture in her foot which initially went undiagnosed. She was eventually seen by Dr. Lopez and underwent an extended recovery using a bone stimulator. With her recent injury, she is concerned she has another stress fracture. 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 BMI of 22. No numbness or tingling. Patient is a pleasant 79-year-old female who presents today with right foot pain. She has a history of hammertoes treated by Dr. Youngblood 20 years ago. 1 month ago she bent her toes backwards during a BioLean maneuver. She had pain in her foot but was hoping symptoms improved. She would have some improvement but easily aggravated her symptoms. She has neuropathy in her feet and was told she needed therapy. She has been working with a therapist on foot mobility, specifically flexing her toes. She would have some improvement and then recurrent symptoms. Normal walking activities did not cause significant pain. With her ongoing complaints she presents today for orthopedic consultation. She was previously seen by our foot and ankle team for stress fracture in her left foot in March 2023. Ann Lopez MD [address], [place], [address], [place] [facility] 09/06/2024 17:19:54 10/26/2024 text/html Patient is a 79-year-old female who presents today with left-sided flank pain. Symptoms started over a month ago without specific injury or trauma. She still remains active at her age and does ballet. She denies any falls. She had been jumping, but not since the onset of her symptoms. She was having increased discomfort and became more concerned. She has a past medical history significant for osteoporosis and severe scoliosis. The scoliosis has progressed over the years. A year ago she was diagnosed with multiple rib fractures without trauma on the right side. She was only having discomfort at times, but now admits to having some discomfort taking deep breath. She denies cough or shortness of breath. She had gone to a physical therapist who has found a focal area in the seventh rib. She was told she should be checked out. She presents today for orthopedic consultation. FABIAN SHEPARD PA-C [address], [place], [address], [place] [facility] 10/26/2024 16:12:58 11/05/2024 text/html Freda is a pleasant 77-year-old female who presents today for follow-up evaluation regarding her left foot. She feels like she has done much better. She feels like she can go back up on her toes and is back in ballet. Her pain is a 0 out of 10. Her burning sensation has also improved. She did see a neurologist who diagnosed her with mild neuropathy. From 09/03/24 ([facility]): for follow-up evaluation regarding her left foot. She was most recently seen in urgent care approximately 1 month ago for a second toe injury that occurred from a hyperflexion injury at her MTP joint, again doing that lately. Of note, she also had a fall and pubic rami fractures that occurred last year. She is currently doing ballet only with her feet flat. She reports that her pain in her toe is burning and an 8 out of 10. It is severe and intermittent. She has taken some oxycodone that she had remaining for her toe pain. She reports that she has been referred to a neurologist for her mild neuropathy and frequent falls. From 04/04/23 ([facility]): for follow-up evaluation regarding her left foot. She is concerned as she has a history of previous stress fractures and whether or not she has a recurrence. She is currently back in regular shoes and was able to get out of her boot. She does report ongoing pain on uneven ground. She continues to do ballet multiple times a week. From 03/13 (MYA): today with left foot pain. She was in the garden on 03/09/2023 and stepped on a root and twisted her left foot. Pain is primarily on the lateral aspect of her foot. She rested and iced her foot but has ongoing symptoms. Symptoms are typically worse with any standing and walking. She had a similar injury in 2018 with a stress fracture in her foot which initially went undiagnosed. She was eventually seen by Dr. Lopez and underwent an extended recovery using a bone stimulator. With her recent injury, she is concerned she has another stress fracture. 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 BMI of 22. No numbness or tingling. Patient is a pleasant 79-year-old female who presents today with right foot pain. She has a history of hammertoes treated by Dr. Youngblood 20 years ago. 1 month ago she bent her toes backwards during a BioLean maneuver. She had pain in her foot but was hoping symptoms improved. She would have some improvement but easily aggravated her symptoms. She has neuropathy in her feet and was told she needed therapy. She has been working with a therapist on foot mobility, specifically flexing her toes. She would have some improvement and then recurrent symptoms. Normal walking activities did not cause significant pain. With her ongoing complaints she presents today for orthopedic consultation. She was previously seen by our foot and ankle team for stress fracture in her left foot in March 2023. Ann Lopez MD [address], [place], [address], [place] [facility] 11/05/2024 13:02:57 OBGyn Episode No OBEpisode recorded.
== END 2025-04-22 11:46 | disposition home or self-care (01) ==
LOC: HO.HOS 11:14
PROVIDERS: PCP Internal Medicine; Visit Provider Orthopaedic Surgery
DX: M25.562 Pain in left knee (principal)
CPT/HCPCS: 99213

== ENCOUNTER → 2025-04-22 11:17 | Outpatient (BNV) | payer MEDICARE, OTHER, SELFPAY | PROVIDERS: Visit Provider Radiology Diagnostic Radiology | DX: M25.562 Pain in left knee (principal); Z96.652 Presence of left artificial knee joint | CPT/HCPCS: 73562 ==